=== PATIENT | female | born 1995 | race African-American/Black ===

== ENCOUNTER 2018-11-07 16:35 | Emergency (ER) | payer OTHER ==
[~2018-11-07] VITALS: Ht 157.5 cm; Wt 49.9 kg
[2018-11-07] MEDS ORDERED: DEXAMETHASONE 4 MG TABLET PO ONE (18:15)
--- NOTE | 2018-11-07 18:18 | PHYS DOC ---
Past Medical History Past Medical History: No Pertinent History Past Surgical History: No Surgical History Alcohol Use: None Drug Use: Marijuana Adult General Chief Complaint Chief Complaint: FLU SYMPTOM HPI HPI Patient is a 23 year old female who came to the emergency department due to flulike symptoms. She states the symptoms started 3 weeks ago and have not resolved. Her symptoms include body aches, cough, intermittent chills, fevers as high as 101 degrees, and a runny nose. She has not tried to take anything to relieve the symptoms she was helped to resolve on her own. Nothing makes her symptoms worse. Review of Systems Review of Systems Constitutional: Reports Fever and chills [] Eyes: Denies change in visual acuity, redness[] HENT: Reports nasal congestion or sore throat [] Respiratory: reports cough, denies shortness of breath [] Cardiovascular: Denies chest pain or palpitations[] GI: Denies abdominal pain, nausea, vomiting[] : Denies dysuria or hematuria [] Musculoskeletal: Denies back pain or joint pain [] Integument: Denies rash or skin lesions [] Neurologic: Denies headache, focal weakness or sensory changes [] Complete systems were reviewed and found to be within normal limits, except as documented in this note. Current Medications Current Medications Current Medications Medications (Trade) Dose Ordered Sig/Shanthi Start Time Stop Time Status Last Admin Dose Admin Dexamethasone (Decadron) 10 mg 1X ONCE 11/07/18 18:15 11/07/18 18:16 DC Allergies Allergies Allergies Coded Allergies Type Severity Reaction Last Updated Verified No Known Drug Allergies 01/26/15 No Physical Exam Physical Exam Constitutional: No acute distress, non-toxic appearance. [] HENT: Normocephalic, atraumatic, TMs clear bilaterally. [] Eyes: EOMI, conjunctiva normal. [] Neck: Supple, nontender. [] Cardiovascular:Heart rate regular rhythm, no murmur [] Lungs & Thorax: Bilateral breath sounds clear to auscultation, no rhonchi or rails or wheezes [] Abdomen: Bowel sounds normal, soft, no tenderness[] Skin: Warm, dry, no erythema, no rash. [] Back: No tenderness, no CVA tenderness. [] Extremities: No cyanosis, no edema. [] Neurologic: Alert and oriented X 3, no focal deficits noted. [] Psychologic: Affect normal,mood normal. [] Current Patient Data Vital Signs Vital Signs Date Time Temp Pulse Resp B/P (MAP) Pulse Ox O2 Delivery O2 Flow Rate FiO2 11/07/18 18:20 98.4 71 18 134/70 (91) 99 Room Air 98.4 Lab Values Laboratory Tests Test 11/07/18 18:10 Influenza Type A Antigen Negative (NEGATIVE) Influenza Type B Antigen Negative (NEGATIVE) EKG EKG [] Radiology/Procedures Radiology/Procedures [] Course & Med Decision Making Course & Med Decision Making 23-year-old female presents to the emergency department for evaluation of flulike symptoms. Symptoms going on for 3 weeks. Informed patient that swabbing patient will not change the course of care. However patient still wants to be swab for flu due to concerns that her children may have picked up the flu from her. Pertinent Labs reviewed. Influenza was negative. Offered patient prescription for prednisone however she did not want the prescription. Patient stable for discharge with outpatient follow-up with PCP. Discussed findings and plan with patient and family, who acknowledge understanding and agreement. (See chart for details) [] Dragon Disclaimer Dragon Disclaimer This electronic medical record was generated, in whole or in part, using a voice recognition dictation system. Departure Departure Impression: Primary Impression: Flu-like symptoms Disposition: HOME, SELF-CARE Condition: STABLE Referrals: KRZYSZTOF AUSTIN MD (PCP) Patient Instructions: Influenza, Adult, [id number] Scripts Prednisone (PREDNISONE) 20 Mg Tablet 2 TAB PO DAILY for 4 Days, #8 TAB Start medication tomorrow, Wednesday 11/08. Prov: RENATE FARRIS DO 11/07/18 RENATE FARRIS DO Nov 07, 2018 18:18
[2018-11-07 18:20] VITALS: BP 134/70
[2018-11-07] MEDS ORDERED: PRED20TA PO ×2 (18:30→18:35)
[2018-11-07 19:02] LABS: INFLUENZA A PATIENT NEGATIVE (NEGATIVE); INFLUENZA B PATIENT NEGATIVE (NEGATIVE)
== END 2018-11-07 19:08 | disposition home or self-care (01) ==
LOC: ER 16:35
DX: R05 Cough (principal); M79.10 Myalgia, unspecified site; R50.9 Fever, unspecified; R09.89 Other specified symptoms and signs involving the circulatory and respiratory systems
CPT/HCPCS: 87804; 99283

== ENCOUNTER 2019-01-08 19:00 | Emergency (ER) | payer OTHER ==
[~2019-01-08] VITALS: Ht 162.6 cm; Wt 59.0 kg
[~2019-01-08 19:00] MED LIST: PRED20TA PO
[2019-01-08 19:13] VITALS: BP 127/79
--- NOTE | 2019-01-08 20:03 | RAD ---
EXAM: Left wrist, 3 views. HISTORY: Trauma. COMPARISON: None. FINDINGS: 3 views of the left wrist are obtained. There is lucency traversing the mid aspect of the scaphoid, suggesting a nondisplaced fracture. IMPRESSION: Lucency traversing the mid aspect of the scaphoid, suggesting a nondisplaced fracture. Correlate for pain in this location. Electronically signed by: Shasta Garcia MD (01/08/2019 8:00 PM) [facility]
[2019-01-08] MEDS ORDERED: HYDR-3164 PO (20:15)
--- NOTE | 2019-01-08 21:54 | PHYS DOC ---
Past Medical History Past Medical History: No Pertinent History Past Surgical History: No Surgical History Alcohol Use: None Drug Use: Marijuana Adult General Chief Complaint Chief Complaint: UPPER EXTREMITY INJURY HPI HPI Patient is a 23 year old female presenting with wrist pain [place] O[place] moderate pain worse with palpation and movement nonradiating Allergies Allergies Allergies Coded Allergies Type Severity Reaction Last Updated Verified No Known Drug Allergies 01/26/15 No Physical Exam Physical Exam Constitutional: Well developed, well nourished, no acute distress, non-toxic appearance. [] HENT: Normocephalic, atraumatic, bilateral external ears normal, oropharynx moist, no oral exudates, nose normal. [] Eyes: PERRLA, EOMI, conjunctiva normal, no discharge. [] Neck: Normal range of motion, no tenderness, supple, no stridor. [] Pulmonary: Normal respiratory effort no increased work of breathing no obvious chest wall traumation [] Abdomen: Bowel sounds normal, soft, no tenderness, no masses, no pulsatile masses. [] Skin: Warm, dry, no erythema, no rash. [] Back: No tenderness, no CVA tenderness. [] Extremities: Patient is deformity of the left wrist with snuffbox tenderness Neurologic: Alert and oriented X 3, normal motor function, normal sensory function, no focal deficits noted. [] Psychologic: Affect normal, judgement normal, mood normal. [] Current Patient Data Vital Signs Vital Signs Date Time Temp Pulse Resp B/P (MAP) Pulse Ox O2 Delivery O2 Flow Rate FiO2 01/08/19 19:19 98.9 84 16 127/79 (95) 98 Room Air 98.9 EKG EKG [] Radiology/Procedures Radiology/Procedures [] Impressions: IMPRESSION: Lucency traversing the mid aspect of the scaphoid, suggesting a nondisplaced fracture. Correlate for pain in this location. Electronically signed by: Shasta Garcia MD (01/08/2019 8:00 PM) [facility] DICTATED and SIGNED BY: SHASTA GARCIA MD DATE: 01/08/191999 Course & Med Decision Making Course & Med Decision Making Pertinent Labs and Imaging studies reviewed. (See chart for details) []We placed the patient in thumb spica splint. I reassessed the patient adequate placement of the splint patient is neuro vascular intact I spoke with Dr. Arguello who recommended hand follow-up. Patient plans to talk to her insurance company in her primary care doctor for referral tomorrow advised her she see hand surgeon within 7 days she voiced understanding and the ability to do so David Disclaimer David Disclaimer This electronic medical record was generated, in whole or in part, using a voice recognition dictation system. Departure Departure Impression: Primary Impression: Scaphoid fracture Disposition: HOME, SELF-CARE Condition: STABLE Patient Instructions: Scaphoid Fracture, Wrist Scripts Hydrocodone/Apap 5-325 (NORCO 5-325 TABLET) 1 Each Tablet 1-2 EACH PO PRN Q6HRS PRN for PAIN, #6 as needed for pain Prov: DINORA BELL MD 01/08/19 DINORA BELL MD Jan 08, 2019 21:54
== END 2019-01-08 21:05 | disposition home or self-care (01) ==
LOC: ER 19:00
DX: S62.002A Unspecified fracture of navicular [scaphoid] bone of left wrist, initial encounter for closed fracture (principal); W18.39XA Other fall on same level, initial encounter; Y93.89 Activity, other specified; Y92.830 Public park as the place of occurrence of the external cause; Y99.8 Other external cause status
CPT/HCPCS: 29125; 73110; 99284-25